=== PATIENT | male | born 1955 | race African-American/Black ===

== ENCOUNTER → 2020-04-11 | Outpatient (CLI) | payer MEDICARE ==
[2014-05-14 22:00] VITALS: BP 201/111
[~2020-04-11] MED LIST: AMLO1CAP PO; ASPI-630 PO; ATOR40TA59 PO; CLOP75TA PO; CYCL10TA2 PO; FENO160T PO; ISOS30TA4 PO; MELO15TA23 PO; METH-38 PO; METO200T46 PO; NAPR-695 PO; OMEP20CA16 PO; OXYC1TAB15 PO; TRIA1TAB3 PO; VALS40TA2 PO
[2020-04-11 13:21] LABS: BASO % 1 % (0-3); EOS # 0.1 x10^3/uL (0.0-0.7); EOS % 3 % (0-3); HEMATOCRIT 40.4 % (39.0-53.0); HEMOGLOBIN 13.8 g/dL (13.0-17.5); LYMPH # 1.2 x10^3/uL (1.0-4.8); LYMPH % 30 % (24-48); MEAN CORPUSCULAR HEMOGLOBIN 31 pg (25-35); MEAN CORPUSCULAR HGB CONC 34 g/dL (31-37); MEAN CORPUSCULAR VOLUME 90 fL (79-100); MONO # 0.4 x10^3/uL (0.0-1.1); MONO % 9 % (0-9); NEUT # 2.3 x10^3/uL (1.8-7.7); NEUT % 58 % (31-73); PLATELET COUNT 195 x10^3/uL (140-400); RED BLOOD COUNT 4.49 x10^6/uL (4.30-5.70); RED CELL DISTRIBUTION WIDTH 14.3 % (11.5-14.5)
[2020-04-11 13:23] LABS: CALCIUM 8.7 mg/dL (8.5-10.1); CREATININE 0.8 mg/dL (0.7-1.3); GFR 117.8; POTASSIUM 3.6 mmol/L (3.5-5.1)
== END ==
LOC: SURGPAT 11:51
PROVIDERS: ATTEND Surgery
DX: Z01.812 Encounter for preprocedural laboratory examination (principal); K40.20 Bilateral inguinal hernia, without obstruction or gangrene, not specified as recurrent; Z20.828 Contact with and (suspected) exposure to other viral communicable diseases
CPT/HCPCS: 80048; 85025; U0003

== ENCOUNTER 2020-04-15 06:28 | Day surgery (SDC) | payer MEDICARE ==
[~2020-04-15] VITALS: Ht 172.7 cm; Wt 90.5 kg
[~2020-04-15 06:28] MED LIST changes: +ACETAMINOPHEN 500 MG TABLET PO ONE; +BUPIVACAINE-EPI 0.25%-1:200000 MPF 30 ML VIAL. INJ ONE
[2020-04-15] MEDS ORDERED: HYDROmorphone 2 MG/ML VIAL IV PRN (07:00)
[2020-04-15] MEDS ORDERED: LIDOCAINE 1% PF 2 ML VIAL. ID PRN (07:00)
[2020-04-15] MEDS ORDERED: IV RINGERS,LACTATED 1000ML 1,000 ML IV SCH (07:00)
[2020-04-15] MEDS ORDERED: PROCHLORPERAZINE 10 MG/2 ML VIAL. IV PRN (07:00)
[2020-04-15] MEDS ORDERED: ACETAMINOPHEN 500 MG TABLET PO ONE (07:00)
[2020-04-15] MEDS ORDERED: ONDANSETRON PF 4 MG/2 ML VIAL. IV PRN (07:00)
[2020-04-15] MEDS ORDERED: fentaNYL PF VIAL 100 MCG/2 ML VIAL IV PRN (07:00)
[2020-04-15] MEDS ORDERED: MINERAL OIL for SURGERY 10 ML VIAL. MC ONE (07:09)
[2020-04-15] MEDS ORDERED: ONDANSETRON PF 4 MG/2 ML VIAL. ONE (07:10)
[2020-04-15] MEDS ORDERED: DEXAMETHASONE SOD PHOS 4 MG/ML VIAL ONE (07:10)
[2020-04-15] MEDS ORDERED: LIDOCAINE 2% PF 5 ML VIAL. ONE (07:10)
[2020-04-15] MEDS ORDERED: PROPOFOL 10 MG/ML (20ML) VIAL. IV ONE (07:10)
[2020-04-15] MEDS ORDERED: ROCURONIUM 50 MG/5 ML VIAL. ONE (07:11)
[2020-04-15] MEDS ORDERED: fentaNYL PF VIAL 100 MCG/2 ML VIAL ONE ×2 (07:11→09:32)
[2020-04-15] MEDS ORDERED: SEVOFLURANE 61 TO 120 MINUTES. IH ONE (07:42)
--- NOTE | 2020-04-15 07:42 | PDOC1 ---
History and Physical Date of Admission Date of Admission DATE: 04/15/20 TIME: 07:38 Identification/Chief Complaint Chief Complaint Bilateral groin pain Source Source: Patient History of Present Illness History of Present Illness 64-year-old male with bulges in both groins for several years denies any current pain although he has had some at times. He does feel like they are getting larger. He did have a heart catheterization 1 year ago and has currently been on Plavix off for the procedure Past Medical History Cardiovascular: CAD, HTN, Hyperlipidemia Pulmonary: No pertinent hx GI: No pertinent hx Heme/Onc: No pertinent hx Hepatobiliary: No pertinent hx Psych: No pertinent hx Musculoskeletal: low back pain Rheumatologic: No pertinent hx Infectious disease: No pertinent hx ENT: No pertinent hx Renal/: No pertinent hx Endocrine: No pertinent hx Dermatology: No pertinent hx Past Surgical History Past Surgical History: Other (Cardiac stents x2 colonoscopy) Family History Family History: Coronary Artery Disease Family History: Parent Social History Smoke: Quit ALCOHOL: none Drugs: None Current Medications Current Medications Current Medications Bupivacaine HCl/ Epinephrine Bitart (Sensorcaine-Epi 0.25%-1:362421 Mpf) 30 ml 1X ONCE INJ ; Start 04/15/20 at 06:00; Stop 04/15/20 at 06:01; Status DC Ondansetron HCl (Zofran) 4 mg PRN Q6HRS PRN IV NAUSEA/VOMITING; Start 04/15/20 at 07:00; Stop 04/16/20 at 06:59 Fentanyl Citrate (Fentanyl 2ml Vial) 25 mcg PRN Q5MIN PRN IV MILD PAIN 1-3; St art 04/15/20 at 07:00; Stop 04/16/20 at 06:59 Fentanyl Citrate (Fentanyl 2ml Vial) 50 mcg PRN Q5MIN PRN IV MODERATE TO SEVERE PAIN; Start 04/15/20 at 07:00; Stop 04/16/20 at 06:59 Morphine Sulfate (Morphine Sulfate) 1 mg PRN Q10MIN PRN IV SEVERE PAIN 7-10; Start 04/15/20 at 07:00; Stop 04/16/20 at 06:59 Ringer's Solution 1,000 ml @ 30 mls/hr Q24H IV Last administered on 04/15/20at 07:08; Start 04/15/20 at 07:00; Stop 04/15/20 at 18:59 Lidocaine HCl (Xylocaine-Mpf 1% 2ml Vial) 2 ml PRN 1X PRN ID PRIOR TO IV START; Start 04/15/20 at 07:00; Stop 04/16/20 at 06:59 Hydromorphone HCl (Dilaudid) 0.5 mg PRN Q10MIN PRN IV SEV PAIN, Second choice; Start 04/15/20 at 07:00; Stop 04/16/20 at 06:59 Prochlorperazine Edisylate (Compazine) 5 mg PACU PRN PRN IV NAUSEA, MRX1; Start 04/15/20 at 07:00; Stop 04/16/20 at 06:59 Cefazolin Sodium/ Dextrose 50 ml @ 100 mls/hr 1X PREOP PRN IV PRIOR TO MS OCEDURE; Start 04/15/20 at 06:00; Stop 04/15/20 at 18:00 Acetaminophen (Tylenol) 500 mg STK-MED ONCE PO ; Start 04/15/20 at 05:54; Stop 04/15/20 at 05:54; Status DC Acetaminophen (Tylenol) 1,000 mg 1X ONCE PO Last administered on 04/15/20at 07:08; Start 04/15/20 at 07:00; Stop 04/15/20 at 07:01; Status DC Mineral Oil (Muri-Lube) 10 ml STK-MED ONCE MC ; Start 04/15/20 at 07:09; Stop 04/15/20 at 07:10; Status DC Lidocaine HCl (Lidocaine Pf 2% Vial) 5 ml STK-MED ONCE .ROUTE ; Start 04/15/20 at 07:10; Stop 04/15/20 at 07:11; Status DC Propofol (Diprivan) 200 mg STK-MED ONCE IV ; Start 04/15/20 at 07:10; Stop 04/15/20 at 07:11; Status DC Ondansetron HCl (Zofran) 4 mg STK-MED ONCE .ROUTE ; Start 04/15/20 at 07:10; Stop 04/15/20 at 07:11; Status DC Dexamethasone Sodium Phosphate (Decadron) 4 mg STK-MED ONCE .ROUTE ; Start 04/15/20 at 07:10; Stop 04/15/20 at 07:11; Status DC Rocuronium [place] (Zemuron) 50 mg STK-MED ONCE .ROUTE ; Start 04/15/20 at 07:11; Stop 04/15/20 at 07:11; Status DC Fentanyl Citrate (Fentanyl 2ml Vial) 100 mcg STK-MED ONCE .ROUTE ; Start 04/15/20 at 07:11; Stop 04/15/20 at 07:11; Status DC Active Scripts Active Reported Clopidogrel (Clopidogrel Bisulfate) 75 Mg Tablet 75 Mg PO DAILY Aspirin 81 Mg Tab.chew 81 Mg PO DAILY Lotrel 10-20 Mg Capsule (Amlodipine Besylate/Benazepril) 1 Each Capsule 1 Each PO DAILY Isosorbide Mononitrate Er (Isosorbide Mononitrate) 30 Mg Tab.er.24h 30 Mg PO DAILY Atorvastatin Calcium 40 Mg Tablet 40 Mg PO HS Omeprazole 20 Mg Capsule.dr 40 Mg PO DAILY Metoprolol Succinate ( Xl ) (Metoprolol Succinate) 200 Mg Tab.er.24h 200 Mg PO DAILY Percocet 5-325 Mg Tablet (Oxycodone/Acetaminophen) 1 Each Tablet 1-2 Tab PO Q4-6HRS Allergies Allergies: Coded Allergies: No Known Drug Allergies (Unverified , 04/15/20) Physical Exam General: Alert, Oriented X3, Cooperative, No acute distress HEENT: Atraumatic, EOMI Lungs: Clear to auscultation, Normal air movement Heart: RRR, no murmurs Abdomen: Normal bowel sounds, Soft, No tenderness Male Genitals Exam: hernia (Bilateral inguinal hernias) Rectal Exam: not examined Extremities: No edema Skin: No significant lesion Neuro: Normal speech Psych/Mental Status: Mental status NL Vitals Vitals Vital Signs Date Time Temp Pulse Resp B/P (MAP) Pulse Ox O2 Delivery O2 Flow Rate FiO2 04/15/20 07:02 98.4 51 20 95 98.4 04/15/20 06:48 122/79 Room Air VTE Prophylaxis Ordered VTE Prophylaxis Devices: Yes VTE Pharmacological Prophylaxi: Contraindicated Assessment/Plan Assessment/Plan Bilateral inguinal hernias plan robotic assisted laparoscopic repair. Justifications for Admission Other Justification KRANTHI STOVER MD Apr 15, 2020 07:42
[2020-04-15] MEDS ORDERED: GLYCOPYRROLATE 1 MG/5 ML VIAL. ONE (07:55)
[2020-04-15] MEDS ORDERED: NEOSTIGMINE METHYLSULFATE 5 MG/5 ML SYRINGE. ONE (08:13)
--- NOTE | 2020-04-15 09:23 | PDOC4 ---
Operative Note Operative Note Date: April 15, 2020 at 09 20 Preoperative diagnosis: Bilateral inguinal hernias Postoperative diagnosis: Same Procedure: Robotic assisted laparoscopic bilateral inguinal hernia repair with mesh Surgeon: Blaaji Specimen: None Dictation: Patient is 64-year-old gentleman with bilateral inguinal hernias. Procedure robotic assisted laparoscopic bilateral inguinal hernia repair with mesh was explained to the patient detail risk benefits were also discussed occluding bleeding infection injury to intra-abdominal contents possibly necessitating further or open operations alternatives to this procedure also discussed with the patient who seemed to understand and gave both verbal and written consent to have the procedure performed. Patient was taken to the operating room placed in the supine position general anesthesia was initiated once patient was sleeping intubated placed in low lithotomy positioning and his abdomen was prepped and draped in usual sterile fashion using ChloraPrep. An area just above the umbilicus was injected with quarter percent Marcaine with epinephrine incision was made 11 blade scalpel and a varies needle was placed within the abdomen creating pneumoperitoneum once this was complete 8 mm da Sammie port was placed and the 8 mm da Sammie camera was placed within the abdomen which was inspected no other abnormalities were noted other than bilateral inguinal hernias with incarcerated small bowel on the right side. 8 mm da Sammie port was placed in the right midabdomen and one in the left midabdomen the da Sammie robot was brought and docked all port sites surgeon went to the robotic console using a grasper and Endo Diomedes scissors the incarcerated small bowel on the right was reduced a flap was propagated the peritoneum inferiorly reducing the hernia sac on the right similarly the left peritoneum was incised and a flap was propagated inferiorly reducing the hernia sac. A large 3D max Bard mesh for right and left side were placed over the hernia defects. The mesh was sewn into place with a 3-0 Vicryl single interrupted suture along the superior margin on both sides. The peritoneal flap was then closed with a running 2 OV lock absorbable suture bilaterally. Sutures removed. The robot was undocked from all port sites all ports removed the pneumoperitoneum was reduced all port sites were closed with 4 subcuticular Monocryl Mastisol Steri-Strips and island dressings were applied. Patient was awakened and extubated in the operating room taken to recovery in stable condition all sponge instrument needle counts listed as correct estimated blood loss 5 mL KRANTHI STOVER MD Apr 15, 2020 09:23
--- NOTE | 2020-04-15 09:32 | DISCH ---
DISCHARGE INSTRUCTIONS Condition on Discharge Condition on Discharge: Stable Activity After Discharge Activity Instructions for Disc: Avoid exertion Other activity instructions: No lifting more than 20 pounds for 2 weeks Diet after Discharge Diet after Discharge: Regular Wound Incision Care Other wound/incision instructi: May shower in 24 hours Contacting the after DC Call your doctor for: If your condition worsens Follow-Up Follow up with: Dr. Stover in 2 weeks KRANTHI STOVER MD Apr 15, 2020 09:32
[2020-04-15] MEDS: fentaNYL PF VIAL 100 MCG/2 ML VIAL IV PRN ×2 (09:40→09:52)
[2020-04-15] MEDS ORDERED: oxyCODONE/APAP 5/325 1 TAB TABLET PO ONE ×2 (09:45→10:00)
[2020-04-15] MEDS ORDERED: MORPHINE SULFATE 2 MG/ML VIAL. ONE (09:59)
[2020-04-15] MEDS: MORPHINE SULFATE 2 MG/ML VIAL. IV PRN ×2 (10:01→10:16)
[2020-04-15 10:26] VITALS: BP 134/83
[2020-04-15] MEDS ORDERED: HYDROmorphone 2 MG/ML VIAL ONE (10:26)
== END 2020-04-15 11:00 | disposition home or self-care (01) ==
LOC: SURG 06:28
PROVIDERS: ATTEND Surgery
DX: K40.00 Bilateral inguinal hernia, with obstruction, without gangrene, not specified as recurrent (principal); I10 Essential (primary) hypertension; E78.00 Pure hypercholesterolemia, unspecified; K21.9 Gastro-esophageal reflux disease without esophagitis; F17.210 Nicotine dependence, cigarettes, uncomplicated; Z79.82 Long term (current) use of aspirin; Z79.899 Other long term (current) drug therapy; Z72.89 Other problems related to lifestyle; Z98.890 Other specified postprocedural states
CPT/HCPCS: 49650; C1781; J0690; J1100; J1170; J2270; J2405; J2704; J2710; J3010; J3490; S2900

== ENCOUNTER → 2020-06-22 | Outpatient (CLI) | payer MEDICARE ==
[~2020-06-22] MED LIST changes: -ACETAMINOPHEN 500 MG TABLET PO ONE; -BUPIVACAINE-EPI 0.25%-1:200000 MPF 30 ML VIAL. INJ ONE; -ISOS30TA4 PO; +ISOS30TA68 PO
--- NOTE | 2020-06-22 14:26 | KCIC ---
EXAM: XR LUMBAR SPINE 4+V 06/22/2020 1:20 PM CLINICAL INDICATION: Back pain COMPARISON: MRI lumbar spine 02/03/2014 TECHNIQUE: 5 views of the lumbar spine FINDINGS: There 5 nonrib-bearing lumbar vertebral bodies. No acute fracture. Alignment is normal. Mi ld degenerative endplate changes, greatest at L2-L3 and L3-L4. Disc spaces are maintained. Mild facet arthrosis. Vascular calcifications are seen in the abdominal aorta and iliac arteries. IMPRESSION: No acute osseous abnormality. Mild degenerative disc disease. Electronically signed by: Yesi Ellis MD (06/22/2020 2:24 PM) [id number]
== END ==
LOC: KCIC 13:13
PROVIDERS: ATTEND Family Medicine
DX: M51.36 Other intervertebral disc degeneration, lumbar region (principal)
CPT/HCPCS: 72110

== ENCOUNTER 2020-10-24 10:32 | Day surgery (SDC) | payer MEDICARE ==
[~2020-10-24] VITALS: Ht 174 cm; Wt 93.4 kg
[~2020-10-24 10:32] MED LIST changes: +BUPIVACAINE-EPI 0.25% 30 ML VIAL KIT. ONE; +HYDROmorphone 2 MG/ML VIAL IVP PRN; +IV RINGERS,LACTATED 1000ML 1,000 ML IV SCH; +MORPHINE SULFATE 2 MG/ML VIAL. IVP PRN; +PANT40TA77 PO; +PROCHLORPERAZINE 10 MG/2 ML VIAL. IVP PRN; +fentaNYL PF VIAL 100 MCG/2 ML VIAL IVP PRN
[2020-10-24 11:12] VITALS: BP 132/82
[2020-10-24] MEDS ORDERED: SEVOFLURANE 61 TO 120 MINUTES. IH ONE (12:03)
[2020-10-24] MEDS ORDERED: ONDANSETRON PF 4 MG/2 ML VIAL. ONE (12:04)
[2020-10-24] MEDS ORDERED: PROPOFOL 10 MG/ML (20ML) VIAL. IV ONE (12:04)
[2020-10-24] MEDS ORDERED: LIDOCAINE 2% PF 5 ML VIAL. ONE (12:04)
[2020-10-24] MEDS ORDERED: DEXAMETHASONE SOD PHOS 4 MG/ML VIAL ONE (12:04)
[2020-10-24] MEDS ORDERED: fentaNYL PF VIAL 100 MCG/2 ML VIAL ONE ×2 (12:14→13:17)
[2020-10-24] MEDS ORDERED: ePHEDrine PF IN SALINE 50 MG/10 ML SYRINGE. IV ONE (12:40)
--- NOTE | 2020-10-24 12:53 | PDOC4 ---
Operative Note Operative Note Date of Procedure: October 24, 2020 Pre-Op Diagnosis: Olecranon bursitis left elbow Post-Op Diagnosis: Olecranon bursitis, left elbow M70.22 Procedure: left elbow, excision olecranon bursa CPT 64718 Surgeon: Christina Aguilar MD Vinegar Maker: Eduardo HOLDEN Anesthesia: General EBL: 50 mL Specimens Obtained: left elbow olecranon bursa Complications: none Drains: none Tourniquet: 9 minutes at 250 mm Hg Indications for Procedure: The patient is a 65-year-old Right handed but somewhat ambidextrous man with left elbow swelling, and pain. Exam is consistent with olecranon bursitis. He has had prior cortisone injection for the bursitis as well as aspiration in the office with recurrence both times. The patient and I discussed the risks, benefits and alternatives of olecranon bursectomy. We discussed the risks of recurrence, scarring, nerve injury, need for further surgeries or other potential surgical or anesthetic complications. Procedure in Detail: The patient was identified in the preoperative holding area. The correct left elbow was marked by me. The patient was taken to the operating room where general anesthetic was used. The patient remains on ronnie eduled IV antibiotics, so no additional dosing was used. The limb was prepared with sterile solution, and sterile drapes were applied. A sterile tourniquet was applied. An Esmarch bandage was used to exsanguinate the limb and the tourniquet was inflated to 250 mmHg. A longitudinal incision was made, slightly medial to the midline tip of the olecranon to prevent a painful scar over the bony prominence. Care was made not to injure the ulnar nerve which also is located medially. The bursa was easily identified, and was excised as a single specimen. The bursa was punctured and bloody fluid was seen, without evidence of infection. The volume of the olecranon bursa was approximately 50 mL. Irrigation was used, and copious irrigation was used. The tourniquet was released. Bovie electrocautery was used as needed for hemostasis with care made not to injure the ulnar nerve. The skin edges were injected with 0.25% bupivacaine with epinephrine. The incision was closed in layers. #0 Vicryl was used in deep subcutaneous tissues and olecranon periosteum to close the space. #2-0 Vicryl was used for subcutaneous tissues. My assistant branch operations manager reapproximated the skin edges with #3-0 Prolene horizontal mattress sutures. A bulky sterile dressing was applied. A posterior splint was applied. Needle and sponge counts were correct. There were no apparent complications. The patient returned to the recovery room in stable condition. CHRISTINA AGUILAR MD Oct 24, 2020 12:53
[2020-10-24] MEDS ORDERED: HYDR-2769 PO (13:33)
[2020-10-24] MEDS ORDERED: PROM25TA10 PO (13:34)
[2020-10-24 13:55] VITALS: BP 134/77
[2020-10-24] MEDS ORDERED: HYDROcodone/APAP 7.5/325MG 1 TAB TABLET PO ONE (14:00)
--- NOTE | 2020-10-25 18:34 | PATHOLOGY ---
[facility] Accession Number: [id number] . 01 Material submitted: . elbow - LEFT ELBOW OLECRANON BURSA SAC. Modifiers: left, OLECRANON, BURSA SAC . 01 Clinical history: . LEFT ELBOW OLECRANON BURSITIS BURSECTOMY . 02 Diagnosis: Segment of fibrous and fibroadipose tissue, left elbow olecranon bursectomy: - Chronic bursitis with focally increased eosinophils, and with early organizing intrabursal sac hemorrhage. (JPM:tremayne; 10/25/2020) MBMichael 10/25/2020 1717 Local . 02 Electronically signed: . Marco Nolasco MD, Pathologist NPI- [id number] . 01 Gross description: . The specimen is received in formalin, labeled "Brown, Lester, left elbow olecranon bursa sac" is a 5.7 x 4.5 x 2 cm discoid portion of magallon-minaya dense fibroconnective tissue which on sectioning has a 75% hemorrhagic cut surface. A signs and displays sales representative section is submitted in A1. ([facility]; 10/24/2020) JAYSON/JAYSON 10/25/2020 1603 Local . 02 Pathologist provided ICD-10: M70.32 . 02 CPT . 195476 Specimen Comment: A courtesy copy of this report has been sent to [phone], [phone] Specimen Comment: [id number] Specimen Comment: Report sent to / DR LOVELACE Specimen Comment: A duplicate report has been generated due to demographic updates. Performed at: [address], [place], [place] [id number] MD Ruben Feldman MD Phone: [phone] Performed at: 02 [facility] [address] [place], [place] [id number] MD Marco Nolasco MD Phone: [phone]
== END 2020-10-24 14:20 | disposition home or self-care (01) ==
LOC: SURG 10:32
PROVIDERS: ATTEND Orthopaedic Surgery
DX: M70.22 Olecranon bursitis, left elbow (principal); I10 Essential (primary) hypertension; E78.00 Pure hypercholesterolemia, unspecified; K21.9 Gastro-esophageal reflux disease without esophagitis; F17.210 Nicotine dependence, cigarettes, uncomplicated; Z79.82 Long term (current) use of aspirin; Z79.899 Other long term (current) drug therapy; Z98.890 Other specified postprocedural states; Z72.89 Other problems related to lifestyle
CPT/HCPCS: 24105; A4565; A4930; A6402; A6449; A6450; J0690; J1100; J2405; J2704; J3010; 88304